=== PATIENT | male | born 2000 | race Two or more races ===

== ENCOUNTER 2022-06-11 20:53 | Inpatient (IN) ==
[2022-06-11 22:17] LABS: Basophils # (auto) 0.01 K/uL (0-0.2); Basophils % (auto) 0.1 %; Eosinophils # (auto) 0.03 K/uL (0-0.50); Eosinophils % (auto) 0.3 %; Immature Granulocytes # (auto) 0.03 K/uL (0.00-0.02); Immature Granulocytes % (auto) 0.3 %; Lymphocytes # (auto) 1.89 K/uL (1.2-3.4); Lymphocytes % (auto) 18.2 %; Mean Corpuscular Hemoglobin 28.9 pg (25.0-34.0); Mean Corpuscular Hgb Conc 34.1 g/dL (32.0-36.0); Mean Corpuscular Volume 84.8 fL (80.0-100.0); Mean Platelet Volume 9.3 fL (9.4-12.4); Monocytes # (auto) 0.62 K/uL (0.24-0.82); Neutrophils # (auto) 7.82 K/uL (1.4-6.5); Neutrophils % (auto) 75.1 %; Platelet Count 278 K/uL (130-400); RDW Coefficient of Variation 12.9 % (11.5-14.5); RDW Standard Deviation 39.4 fL (36.4-46.3); Red Blood Count 5.19 M/uL (4.63-6.08)
[2022-06-11 22:29] LABS: Appearance Urine Clear (Clear); Bilirubin Urine Negative (Negative); Blood Urine 3+ (Negative); Color Urine Yellow; Glucose Urine UA Negative (Negative); Ketones Urine Negative (Negative); Leukocyte Esterase Urine Negative (Negative); Nitrite Urine Negative (Negative); Protein Urine 1+ (Negative); Specific Gravity Urine 1.008 (1.000-1.030); Urobilinogen Urine Negative (Negative)
[2022-06-11 22:45] LABS: Bacteria Urine Negative (Negative); RBC Urine 0-4 /hpf (0-4)
[2022-06-11 22:46] LABS: Alanine Aminotransferase 253 U/L (7-52); Albumin Globulin Ratio 1.8 (0.9-2); Albumin Level 4.8 gm/dl (3.4-5.0); Alkaline Phosphatase 56 U/L (34-104); Anion Gap 5 (3-11); Aspartate Aminotransferase 942 U/L (13-39); BUN Creatinine Ratio 17.6 (10-20); Bilirubin,Total 0.7 mg/dl (0.2-1.0); Blood Urea Nitrogen 15 mg/dl (6-23); Calcium 9.8 mg/dl (8.5-10.1); Carbon Dioxide 29 mmol/L (21-32); Chloride 103 mmol/L (98-107); Creatinine Clr Calc Pharmacy 176.7 ml/min; Est GFR (African American) 146.4 ml/min; Est GFR (Non-African American) 126.3 ml/min; Globulin 2.7 gm/dl (2.5-4.0); Glucose 86 mg/dl (70-99(Fasting)); Lipase 23 U/L (11-82); Potassium 4.1 mmol/L (3.5-5.1); Sodium 137 mmol/L (136-145); Total Protein 7.5 gm/dl (6.0-8.3)
[2022-06-12] MEDS ORDERED: SODIUM CHLORIDE 0.9% 1000ML 2,000 ML IV ONE (00:15)
[2022-06-12 01:32] LABS: Creatine Kinase > 100000 U/L (30-223)
--- NOTE | 2022-06-12 01:58 | History & Physical Report ---
Date of Service June 12, 2022 Assessment & Plan (1) Rhabdomyolysis: Plan: 21-year-old male with no past medical history who presents with myalgia and likely myoglobinuria x several days most likely secondary to rhabdomyolysis. - etiology unknown; contributing factors are heavy alcohol use preceding onset of symptoms and intense gym workouts. last etoh use was 4 days ago. - check tickborne studies and hepatitis panel. lower suspicion for autoimmune pathology - AST:ALT ratio >2:1 generally more consistent w/ etoh use. bili and alk phos wnl - no reported ingestion of tylenol or illicit substances - check UDS and acetaminophen level - s/p 2L NSS in ED. 500mL/hr NSS x4 bags ordered Plan regular diet. 500mL/hr x 4 bags NSS ordered SCDs med surg full code History of Present Illness Chief Complaint: myalgia and dark urine Primary Care Provider: [facility] 21-year-old male with no past medical history who presents with myalgia that started evening of 06/07. He started noticing dark brown urine on 06/08. He presented to the ED today for persistent brown urine and the continued myalgias. Denies recent tylenol. He took 3 tabs total of ibuprofen earlier in the week. He drinks 4-8 etoh drinks on occasion every 2 weeks. In the past 7 days, he drank 3 times, last drink was 06/07, close to 8 drinks. On 06/07, he also went to workout after not working out for a year and a half. He did not take any workout supplements. 06/11 he continued to work out and had a protein shake. He denies tick bites. 1-2 weeks ago was sick with fever (negative for fever), took some multivitamins. No dysuria. No fevers/chills, cp, shortness of breath, no abd pain or n/v. Denies family hx of autoimmune conditions. Was seen here for constipation last month. Constipation has subjectively resolved. Occasional cigar. No marijuana. ED course: CK >100k, AST 942, ALT 253. 2L NSS bolus. Allergies Allergy/AdvReac Type Severity Reaction Status Date / Time No Known Allergies Allergy Unverified 06/12/22 02:46 Home Medications Medication Instructions Recorded Confirmed Type No Known Home Medications 06/12/22 06/12/22 History Past Med/Surg History Medical History No chronic diseases present Surgical History No significant past surgical history Social History Smoking Status: Former smoker Tobacco Type: Cigars Second Hand Exposure: No; Do You Dip or Chew Tobacco: No; Tobacco Cessation Education Requested by Patient: No Hx Alcohol Use: Yes Alcohol type: beer and hard liquor Hx Substance Use: No Preferred Language: Wolof Communication Ability: Effective 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 NAD. Cooperative. HEENT: Atraumatic, normocephalic. EOMI Pulm: CTAB. -wheezes, -rales, -rhonchi. No respiratory distress. Cardiac: RRR, -mrg. Radial pulses intact and symmetrical. No LE edema. Abdominal: Nontender, nondistended, soft. Integ: Warm, dry, intact. Msk: Moving all extremities. Results & Data Results & Data ([facility]) Vital Signs (Past 12 Hours) Vital Signs Temp Pulse Pulse Resp BP BP Pulse Ox 06/12/22 01:42 90 24 151/107 H 98 06/12/22 01:38 98 06/11/22 21:00 36.4 C L 120 H 20 149/94 H 97 O2 Del Method 06/12/22 01:42 Room Air 06/12/22 01:38 Room Air 06/11/22 21:00 Room Air Laboratory Results Cardiac Enzymes 06/11/22 Range/Units 22:07 AST 942 H (13-39) U/L CBC 06/11/22 Range/Units 22:07 WBC 10.40 (4.8-10.8) K/ul RBC 5.19 (4.63-6.08) M/uL Hgb 15.0 (14.0-18.0) g/dl Hct 44.0 (40.1-51.0) % Plt Count 278 (130-400) K/uL Neut # (Auto) 7.82 H (1.4-6.5) K/uL Lymph # (Auto) 1.89 (1.2-3.4) K/uL [place] # (Auto) 0.62 (0.24-0.82) K/uL Eos # (Auto) 0.03 (0-0.50) K/uL Baso # (Auto) 0.01 (0-0.2) K/uL Comprehensive Metabolic Panel 06/11/22 Range/Units 22:07 Sodium 137 (136-145) mmol/L Potassium 4.1 (3.5-5.1) mmol/L Chloride 103 (98-107) mmol/L Carbon Dioxide 29 (21-32) mmol/L BUN 15 (6-23) mg/dl Creatinine 0.85 (0.6-1.4) mg/dl Glucose 86 (70-99(Fasting)) mg/dl Calcium 9.8 (8.5-10.1) mg/dl AST 942 H (13-39) U/L ALT 253 H (7-52) U/L Alkaline Phosphatase 56 (34-104) U/L Total Protein 7.5 (6.0-8.3) gm/dl Albumin 4.8 (3.4-5.0) gm/dl Intake and Output 06/11/22 06/11/22 06/12/22 14:59 22:59 06:59 Other: Weight 107 kg Weight Measurement Method Chair Scale Patient Weight 06/12/22 06:59 Weight 107 kg Code Status & VTE Plan Code Status full VTE Prophylaxis Plan VTE Prophylaxis will be ordered: Yes Supervising Physician Co-Signing Physician Notes Attending addendum: I have physically seen this patient, have supervised the medical residents activities, and agree with the H&P unless as otherwise noted. Assessment and Plan: Rhabdomyolysis- AST 942 ALT 253 CK greater than 100,000 Patient received 2 L normal saline from the ED Continue aggressive IV fluid rehydration Follow serial chemistry profile and CK Check a PT/PTT/INR Patient denies taking any supplements Likely associated with alcohol intake followed by aggressive exercise Alcohol and UDS levels pending Remaining orders and notations as noted Resident Activity Tracking Resident Involvement: Resident Care Provided Care Provided: Adult [facility]
[2022-06-12 02:59] LABS: Amphetamines+Metham, Urine Neg (Neg); Barbiturates, Urine Neg (Neg); Benzodiazepine, Urine Neg (Neg); Cocaine, Urine Neg (Neg); MDMA (Ecstacy), Urine Neg (Neg); Methadone, Urine Neg (Neg); Opiate, Urine Neg (Neg); Phencyclidine, Urine Neg (Neg)
[2022-06-12 03:02] LABS: Partial Thromboplastin Ratio 0.9; Partial Thromboplastin Time 23.6 Seconds (21.0-31.0); Prothrombin Time 10.7 Seconds (9.0-12.0)
[2022-06-12] MEDS: SODIUM CHLORIDE 0.9% 1000ML 1,000 ML IV SCH ×7 (03:18→22:30)
[2022-06-12 03:22] LABS: Lyme Ab IgG w/WB Rflx Negative (Negative); Lyme Ab IgM w/WB Rflx Negative (Negative)
--- NOTE | 2022-06-12 03:30 | Emergency Department Note ---
Impression & Plan Rhabdomyolysis, Elevated liver enzymes ED Provider Note CHIEF COMPLAINT: Muscle soreness, HISTORY OF PRESENT ILLNESS: This 21 yo male patient presents to the emergency department 2 days after heavy workout. The patient states he went back to the gym after about 18 months of. His roommate was guiding him through the process. The patient states he had a pretty significant anterior chest discomfort. He states his arms are sore. He noticed a dark, brownish urine over the last 2 days. He states he has been trying to drink a lot of water. Patient states he did go back to the gym today and adjusted "upper body." REVIEW OF SYSTEMS: A review of systems was performed with positives and pertinent negatives listed in the history of present illness. 10 systems were reviewed and are otherwise negative. ALLERGIES: see below MEDICATIONS: see below PMH: see below SOCIAL HISTORY: see below DDx: rhabdo, UTI, kidney stone, tox, renal failure, hepatitis, medication effect, amongst others. PHYSICAL EXAM: Vital signs reviewed. General: Well-appearing 21 yo male, in no significant distress. HEENT: No scleral icterus, PERRLA, neck supple. MMM. Cardiovascular: Regular rate and rhythm, no extra sounds. Pulmonary: Clear to auscultation bilaterally, normal work of breathing. Abdomen: Soft, nontender, nondistended, positive bowel sounds. Musculoskeletal: Atraumatic, no peripheral edema. Neurologic: Patient awake alert and oriented x 3 Skin: Warm, dry, no rash EMERGENCY DEPARTMENT COURSE/MDM: This pt was evaluated and appeared to be in no distress. IV access was obtained and lab work was drawn. Pt was hydrated with NSS. Labs were notable for elevated total CK >100,000 and elevated liver enzymes. UA was notable for blood. Pt's case was discussed with the hospital ist service for further management. Pt was made aware of of the plan and agrees. MONITORING: An order for cardiac monitoring was placed and the patient is noted to be in a NSR at 90 beats per minute. DISPOSITION: Home Past Med/Surg History Medical History No chronic diseases present Surgical History No significant past surgical history Social History Smoking Status: Former smoker Tobacco Type: Cigars Second Hand Exposure: No; Do You Dip or Chew Tobacco: No; Tobacco Cessation Education Requested by Patient: No Hx Alcohol Use: Yes Alcohol type: beer and hard liquor Hx Substance Use: No Preferred Language: Bangladeshi Communication Ability: Effective Anesthesiology Teacher Required: No Beliefs That Will Affect Care: None Current Living Situation: Other Current Living Situation Comment: roomate Other Information That Helps Us Care for You: No Feels Safe at Home: Yes Safety Concerns: Feels Safe At This Time Allergies Allergies Allergy/AdvReac Type Severity Reaction Status Date / Time No Known Allergies Allergy Unverified 06/12/22 02:46 Home Meds Home Medications Medication Instructions Recorded Confirmed No Known Home Medications 06/12/22 06/12/22 Results & Data (ED) Vital Signs Vital Signs - 24 hr 06/11/22 21:00 06/12/22 01:38 06/12/22 01:42 Temperature 36.4 C L Temperature Source Temporal Artery Scan Pulse Rate 120 H Pulse Rate [Finger] 90 Respiratory Rate 20 24 Respiratory Effort / Characteristics Non-Labored Spontaneous Respiratory Depth Normal Blood Pressure 149/94 H Blood Pressure [Right Arm] 151/107 H Blood Pressure Mean 112 Blood Pressure Mean [Right Arm] 121 Pulse Oximetry 97 98 98 Oxygen Delivery Method Room Air Room Air Room Air Sepsis Recent Fever Within 48 Hours No Sepsis New/Unexplained Change in Mental Status No Sepsis Action Taken by Nursing No Action Required 06/12/22 03:00 Temperature Temperature Source Pulse Rate Pulse Rate [Finger] 98 H Respiratory Rate 18 Respiratory Effort / Characteristics Respiratory Depth Blood Pressure Blood Pressure [Right Arm] 143/101 H Blood Pressure Mean Blood Pressure Mean [Right Arm] 115 Pulse Oximetry 97 Oxygen Delivery Method Room Air Sepsis Recent Fever Within 48 Hours Sepsis New/Unexplained Change in Mental Status Sepsis Action Taken by Usp Medications Current Medication List: was personally reviewed by me Laboratory Data Attestation: I reviewed the patient's lab results. Result diagrams: 06/12/22 03:20 06/12/22 03:20 Lab Results 06/11/22 06/11/22 06/11/22 Range/Units 22:03 22:03 22:07 WBC 10.40 (4.8-10.8) K/ul RBC 5.19 (4.63-6.08) M/uL Hgb 15.0 (14.0-18.0) g/dl Hct 44.0 (40.1-51.0) % MCV 84.8 (80.0-100.0) fL MCH 28.9 (25.0-34.0) pg MCHC 34.1 (32.0-36.0) g/dL RDW Std Deviation 39.4 (36.4-46.3) fL RDW Coeff of Vesta 12.9 (11.5-14.5) % Plt Count 278 (130-400) K/uL MPV 9.3 L (9.4-12.4) fL Immature Gran % (Auto) 0.3 % Neut % (Auto) 75.1 % Lymph % (Auto) 18.2 % Branch % (Auto) 6.0 % Eos % (Auto) 0.3 % Baso % (Auto) 0.1 % Neut # (Auto) 7.82 H (1.4-6.5) K/uL Lymph # (Auto) 1.89 (1.2-3.4) K/uL Branch # (Auto) 0.62 (0.24-0.82) K/uL Eos # (Auto) 0.03 (0-0.50) K/uL Baso # (Auto) 0.01 (0-0.2) K/uL Immature Gran # (Auto) 0.03 H (0.00-0.02) K/uL PT (9.0-12.0) Seconds INR (0.9-1.1) APTT (21.0-31.0) Seconds PTT Ratio Sodium (136-145) mmol/L Potassium (3.5-5.1) mmol/L Chloride (98-107) mmol/L Carbon Dioxide (21-32) mmol/L Anion Gap (3-11) BUN (6-23) mg/dl Creatinine (0.6-1.4) mg/dl Est Cr Clr Drug Dosing ml/min Est GFR ( Amer) ml/min Est GFR (Non-Af Amer) ml/min BUN/Creatinine Ratio (10-20) Glucose (70-99(Fasting)) mg/dl Calcium (8.5-10.1) mg/dl Total Bilirubin (0.2-1.0) mg/dl AST (13-39) U/L ALT (7-52) U/L Alkaline Phosphatase (34-104) U/L Total Creatine Kinase (30-223) U/L Total Protein (6.0-8.3) gm/dl Albumin (3.4-5.0) gm/dl Globulin (2.5-4.0) gm/dl Albumin/Globulin Ratio (0.9-2) Lipase (11-82) U/L Urine Color Yellow Urine Appearance Clear (Clear) Urine pH 6.0 (4.5-7.5) Ur Specific [place] 1.008 (1.000-1.030) Urine Protein 1+ H (Negative) Urine Glucose (UA) Negative (Negative) Urine Ketones Negative (Negative) Urine Blood 3+ H (Negative) Urine Nitrite Negative (Negative) Urine Bilirubin Negative (Negative) Urine Urobilinogen Negative (Negative) Ur Leukocyte Esterase Negative (Negative) Urine RBC 0-4 (0-4) /hpf Urine WBC 5-10 H (0-5) /hpf Ur Epithelial Cells 5-10 H (0-5) /lpf Urine Bacteria Negative (Negative) Urine Opiates Screen Neg (Neg) Ur Methadone, Qual Neg (Neg) Urine Barbiturates Neg (Neg) Ur Phencyclidine (PCP) Neg (Neg) U Amphetamin/Meth Scrn Neg (Neg) MDMA (Ecstasy) Screen Neg (Neg) U Benzodiazepines Scrn Neg (Neg) Ur Cocaine Metabolite Neg (Neg) U Marijuana (THC) Screen Neg (Neg) Lyme Disease IgG Ab (Negative) Lyme Disease IgM Ab (Negative) SARS-CoV-2, RNA, NAAT (NEGATIVE) 06/11/22 06/11/22 06/11/22 Range/Units 22:07 22:07 22:07 WBC (4.8-10.8) K/ul RBC (4.63-6.08) M/uL Hgb (14.0-18.0) g/dl Hct (40.1-51.0) % MCV (80.0-100.0) fL MCH (25.0-34.0) pg MCHC (32.0-36.0) g/dL RDW Std Deviation (36.4-46.3) fL RDW Coeff of Vesta (11.5-14.5) % Plt Count (130-400) K/uL MPV (9.4-12.4) fL Immature Gran % (Auto) % Neut % (Auto) % Lymph % (Auto) % Branch % (Auto) % Eos % (Auto) % Baso % (Auto) % Neut # (Auto) (1.4-6.5) K/uL Lymph # (Auto) (1.2-3.4) K/uL Branch # (Auto) (0.24-0.82) K/uL Eos # (Auto) (0-0.50) K/uL Baso # (Auto) (0-0.2) K/uL Immature Gran # (Auto) (0.00-0.02) K/uL PT 10.7 (9.0-12.0) Seconds INR 1.0 (0.9-1.1) APTT 23.6 (21.0-31.0) Seconds PTT Ratio 0.9 Sodium 137 (136-145) mmol/L Potassium 4.1 (3.5-5.1) mmol/L Chloride 103 (98-107) mmol/L Carbon Dioxide 29 (21-32) mmol/L Anion Gap 5 (3-11) BUN 15 (6-23) mg/dl Creatinine 0.85 (0.6-1.4) mg/dl Est Cr Clr Drug Dosing 176.7 ml/min Est GFR ( Amer) 146.4 ml/min Est GFR (Non-Af Amer) 126.3 ml/min BUN/Creatinine Ratio 17.6 (10-20) Glucose 86 (70-99(Fasting)) mg/dl Calcium 9.8 (8.5-10.1) mg/dl Total Bilirubin 0.7 (0.2-1.0) mg/dl AST 942 H (13-39) U/L ALT 253 H (7-52) U/L Alkaline Phosphatase 56 (34-104) U/L Total Creatine Kinase > 102979 H (30-223) U/L Total Protein 7.5 (6.0-8.3) gm/dl Albumin 4.8 (3.4-5.0) gm/dl Globulin 2.7 (2.5-4.0) gm/dl Albumin/Globulin Ratio 1.8 (0.9-2) Lipase 23 (11-82) U/L Urine Color Urine Appearance (Clear) Urine pH (4.5-7.5) Ur Specific [place] (1.000-1.030) Urine Protein (Negative) Urine Glucose (UA) (Negative) Urine Ketones (Negative) Urine Blood (Negative) Urine Nitrite (Negative) Urine Bilirubin (Negative) Urine Urobilinogen (Negative) Ur Leukocyte Esterase (Negative) Urine RBC (0-4) /hpf Urine WBC (0-5) /hpf Ur Epithelial Cells (0-5) /lpf Urine Bacteria (Negative) Urine Opiates Screen (Neg) Ur Methadone, Qual (Neg) Urine Barbiturates (Neg) Ur Phencyclidine (PCP) (Neg) U Amphetamin/Meth Scrn (Neg) MDMA (Ecstasy) Screen (Neg) U Benzodiazepines Scrn (Neg) Ur Cocaine Metabolite (Neg) U Marijuana (THC) Screen (Neg) Lyme Disease IgG Ab Negative (Negative) Lyme Disease IgM Ab Negative (Negative) SARS-CoV-2, RNA, NAAT (NEGATIVE) 06/12/22 Range/Units 01:44 WBC (4.8-10.8) K/ul RBC (4.63-6.08) M/uL Hgb (14.0-18.0) g/dl Hct (40.1-51.0) % MCV (80.0-100.0) fL MCH (25.0-34.0) pg MCHC (32.0-36.0) g/dL RDW Std Deviation (36.4-46.3) fL RDW Coeff of Vesta (11.5-14.5) % Plt Count (130-400) K/uL MPV (9.4-12.4) fL Immature Gran % (Auto) % Neut % (Auto) % Lymph % (Auto) % Branch % (Auto) % Eos % (Auto) % Baso % (Auto) % Neut # (Auto) (1.4-6.5) K/uL Lymph # (Auto) (1.2-3.4) K/uL Branch # (Auto) (0.24-0.82) K/uL Eos # (Auto) (0-0.50) K/uL Baso # (Auto) (0-0.2) K/uL Immature Gran # (Auto) (0.00-0.02) K/uL PT (9.0-12.0) Seconds INR (0.9-1.1) APTT (21.0-31.0) Seconds PTT Ratio Sodium (136-145) mmol/L Potassium (3.5-5.1) mmol/L Chloride (98-107) mmol/L Carbon Dioxide (21-32) mmol/L Anion Gap (3-11) BUN (6-23) mg/dl Creatinine (0.6-1.4) mg/dl Est Cr Clr Drug Dosing ml/min Est GFR ( Amer) ml/min Est GFR (Non-Af Amer) ml/min BUN/Creatinine Ratio (10-20) Glucose (70-99(Fasting)) mg/dl Calcium (8.5-10.1) mg/dl Total Bilirubin (0.2-1.0) mg/dl AST (13-39) U/L ALT (7-52) U/L Alkaline Phosphatase (34-104) U/L Total Creatine Kinase (30-223) U/L Total Protein (6.0-8.3) gm/dl Albumin (3.4-5.0) gm/dl Globulin (2.5-4.0) gm/dl Albumin/Globulin Ratio (0.9-2) Lipase (11-82) U/L Urine Color Urine Appearance (Clear) Urine pH (4.5-7.5) Ur Specific [place] (1.000-1.030) Urine Protein (Negative) Urine Glucose (UA) (Negative) Urine Ketones (Negative) Urine Blood (Negative) Urine Nitrite (Negative) Urine Bilirubin (Negative) Urine Urobilinogen (Negative) Ur Leukocyte Esterase (Negative) Urine RBC (0-4) /hpf Urine WBC (0-5) /hpf Ur Epithelial Cells (0-5) /lpf Urine Bacteria (Negative) Urine Opiates Screen (Neg) Ur Methadone, Qual (Neg) Urine Barbiturates (Neg) Ur Phencyclidine (PCP) (Neg) U Amphetamin/Meth Scrn (Neg) MDMA (Ecstasy) Screen (Neg) U Benzodiazepines Scrn (Neg) Ur Cocaine Metabolite (Neg) U Marijuana (THC) Screen (Neg) Lyme Disease IgG Ab (Negative) Lyme Disease IgM Ab (Negative) SARS-CoV-2, RNA, NAAT NEGATIVE (NEGATIVE) Administered Medications Sodium Chloride (Nss 1000ml) 1,000 mls @ 200 mls/hr IV .Q5H KRISHNA Stop: 07/12/22 12:29 Last Admin: 06/12/22 12:39 Dose: 200 mls/hr Documented By: LIZZY Discontinued Medications Sodium Chloride (Nss 1000ml) 2,000 mls @ 999 mls/hr IV .Q2H1M ONE Stop: 06/12/22 02:15 Last Infusion: 06/12/22 02:44 Dose: 0 mls/hr Documented By: Admin: 06/12/22 01:01 Dose: 999 mls/hr Documented By: KELLY Sodium Chloride (Nss 1000ml) 1,000 mls @ 500 mls/hr IV .Q2H KRISHNA Stop: 06/12/22 10:07 Last Infusion: 06/12/22 11:32 Dose: 0 mls/hr Documented By: Admin: 06/12/22 09:24 Dose: 500 mls/hr Documented By: Infusion: 06/12/22 09:18 Dose: 500 mls/hr Documented By: Admin: 06/12/22 07:18 Dose: 500 mls/hr Documented By: Infusion: 06/12/22 07:18 Dose: 500 mls/hr Documented By: Admin: 06/12/22 05:18 Dose: 500 mls/hr Documented By: Infusion: 06/12/22 05:18 Dose: 500 mls/hr Documented By: Admin: 06/12/22 03:18 Dose: 500 mls/hr Documented By: AMY Blood Pressure Blood Pressure Findings: Elevated blood pressure Blood Pressure Disposition: further management by hospitalist Discharge Plan Visit Data Chief Complaint: Urinary Symptoms Stated Complaint: brown urine ED Provider: Anny Varner Discharge Problem: Rhabdomyolysis, Elevated liver enzymes Patient Disposition: Admitted As Inpatient Discharge Instructions Interventions: ED Discharge Assessment Last Done: 06/12/22 05:29
[2022-06-12 03:34] LABS: Base Excess VBG -0.2 mEq/L; HCO3 VBG 25 mmol/L; Oxygen Saturation VBG 81.3 %; PCO2 VBG 41 mmHg (38-50); PO2 VBG 51 mmHg; pH VBG 7.39 (7.36-7.41)
[2022-06-12 03:38] LABS: Basophils # (auto) 0.01 K/uL (0-0.2); Basophils % (auto) 0.1 %; Eosinophils # (auto) 0.05 K/uL (0-0.50); Eosinophils % (auto) 0.6 %; Hematocrit (blood only) 40.6 % (40.1-51.0); Hemoglobin 13.8 g/dl (14.0-18.0); Immature Granulocytes # (auto) 0.02 K/uL (0.00-0.02); Immature Granulocytes % (auto) 0.3 %; Lymphocytes # (auto) 2.19 K/uL (1.2-3.4); Lymphocytes % (auto) 27.4 %; Mean Corpuscular Hemoglobin 28.9 pg (25.0-34.0); Mean Corpuscular Volume 84.9 fL (80.0-100.0); Mean Platelet Volume 9.1 fL (9.4-12.4); Monocytes # (auto) 0.49 K/uL (0.24-0.82); Monocytes % (auto) 6.1 %; Neutrophils # (auto) 5.22 K/uL (1.4-6.5); Neutrophils % (auto) 65.5 %; Platelet Count 236 K/uL (130-400); RDW Coefficient of Variation 12.9 % (11.5-14.5); RDW Standard Deviation 39.5 fL (36.4-46.3); Red Blood Count 4.78 M/uL (4.63-6.08); White Blood Count 7.98 K/ul (4.8-10.8)
[2022-06-12 04:02] LABS: Troponin I High Sensitivity 16.6 pg/ml (0-20)
[2022-06-12 04:03] LABS: Alanine Aminotransferase 221 U/L (7-52); Albumin Level 4.3 gm/dl (3.4-5.0); Alkaline Phosphatase 48 U/L (34-104); Anion Gap 7 (3-11); Aspartate Aminotransferase 776 U/L (13-39); BUN Creatinine Ratio 14.5 (10-20); Bilirubin,Total 0.7 mg/dl (0.2-1.0); Blood Urea Nitrogen 11 mg/dl (6-23); Calcium 8.9 mg/dl (8.5-10.1); Carbon Dioxide 25 mmol/L (21-32); Chloride 106 mmol/L (98-107); Creatinine Clr Calc Pharmacy 197.6 ml/min; Est GFR (African American) > 150.0 ml/min; Est GFR (Non-African American) 132.3 ml/min; Globulin 2.1 gm/dl (2.5-4.0); Glucose 87 mg/dl (70-99(Fasting)); Magnesium 1.9 mg/dl (1.7-2.4); Phosphorus 3.8 mg/dl (2.5-4.9); Potassium 3.8 mmol/L (3.5-5.1); Sodium 138 mmol/L (136-145); Total Protein 6.4 gm/dl (6.0-8.3)
--- NOTE | 2022-06-12 07:56 | Communication Note ---
Date of Service: June 12, 2022 Rhabdomyolysis: Will need IV fluids re-ordered (perhaps at slower rate) after completion of the 4 bags of 500mL/hr NSS.
--- NOTE | 2022-06-12 13:58 | Electrocardiogram Report ---
Test Reason : Blood Pressure : / mmHG Vent. Rate : 087 BPM Atrial Rate : 087 BPM P-R Int : 148 ms QRS Dur : 084 ms QT Int : 388 ms P-R-T Axes : 048 055 029 degrees QTc Int : 466 ms Normal sinus rhythm Normal ECG No previous ECGs available Confirmed by Ephraim Beyer ([id number]) on 06/12/2022 1:57:56 PM Referred By: REFERRED SELF Confirmed By:Ephraim Beyer
[2022-06-12 14:10] LABS: Alanine Aminotransferase 222 U/L (7-52); Aspartate Aminotransferase 731 U/L (13-39); Creatine Kinase 83798 U/L (30-223)
--- NOTE | 2022-06-12 21:36 | Communication Note ---
Date of Service: June 12, 2022 Saw patient mid-afternoon. He was resting comfortably. Feeling ok. Left arm stiffness from recent weight lifting sessions improved. No body-wide myalgias. Exam - gen - NAD neck - no JVD mouth - MMM heart - RRR, s1 s2 lungs - CTA b/l abd - soft NT ND BS+; no HSM ext - left arm mildly swollen but no evidence of compartment syndrome; ankles w/o edema, pulses 2+ b/l labs - CPK 100,000 --> 83,000 AST, ALT 700s and 200s respectively Cr 0.7 A/P: 1. rhabdomyolysis - 2nd to intense weight lifting work-out in the setting of etoh use. Biochemically improved with stable creatinine. No evidence of compartment syndrome on exam. Cont NS - 200cc/hr. Repeat labs in am. 2. elevated AST/ALT - 2nd to #1 along with etoh use. Trend. 3. elevated BP without dx of HTN - trend BPs. Pt's mother extensively updated by phone this evening, questions answered. Clif Andrews MD
--- NOTE | 2022-06-12 23:56 | Billing Data ---
Date of Service June 12, 2022 Coding Level of Care Code 64805 Initial Inpt Care Lvl 2
[2022-06-13] MEDS: SODIUM CHLORIDE 0.9% 1000ML 1,000 ML IV SCH ×5 (03:34→23:18)
[2022-06-13 06:18] LABS: Anion Gap 5 (3-11); Blood Urea Nitrogen 5 mg/dl (6-23); Calcium 9.2 mg/dl (8.5-10.1); Carbon Dioxide 28 mmol/L (21-32); Chloride 105 mmol/L (98-107); Creatinine Clr Calc Pharmacy 211.5 ml/min; Est GFR (African American) > 150.0 ml/min; Glucose 94 mg/dl (70-99(Fasting)); Potassium 3.8 mmol/L (3.5-5.1); Sodium 138 mmol/L (136-145)
[2022-06-13 07:59] LABS: Alanine Aminotransferase 215 U/L (7-52)
[2022-06-13 09:49] LABS: Aspartate Aminotransferase 623 U/L (13-39); Creatine Kinase 52704 U/L (30-223)
--- NOTE | 2022-06-13 22:40 | Hospitalist Progress Note ---
Date of Service June 13, 2022 Assessment & Plan (1) Rhabdomyolysis: Plan: 2nd to intense gym workouts recently preceded by no regular exercise in several years. Likely exacerbated by dehydration from heavy etoh abuse. Last etoh use was 4 days prior to admission. IMPROVING biochemically. No myalgia symptoms. Stable renal function. Cont NS at 200cc/hr. Repeat ast/alt and CPK in am. (2) Transaminitis: Plan: 2nd to #1. alcohol abuse also likely contributed. Stable LFTs otherwise. AST/ALT slowly improving. Repeat levels am. (3) Elevated blood-pressure reading without diagnosis of hypertension: Plan: Has had numerous elevated readings here at [facility], and was high at his annual physical last year. He may have essential HTN. Underlying KISHOR could be contributing. Check TSH in am. Check renin/janie levels. Monitor for now. (4) Snoring: Plan: Needs formal sleep study as outpatient. 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 he remembers his systolic BP being 135 he is uncertain about family h/o HTN he has lost 40-50 pounds of weight in the last year intentionally does snore per his family but it is improved with the weight loss Review of Systems Review of Systems: gen - eating well cv - no orthopnea, palpitations, cp pulm - no dyspnea or CHILDS GI - no N/V Physical Exam Physical Exam: gen - NAD, pleasant mouth - MMM neck - no JVD heart - RRR, s1 s2, no murmur lungs - CTA b/l abd - soft NT ND BS+ ext - no edema, pulses 2+ b/l musculo - left arm swelling resolved Results & Data Results & Data ([facility]) Vital Signs (Past 12 Hours) Vital Signs Temp Pulse Resp BP BP Pulse Ox O2 Del Method 06/13/22 21:39 36.9 C 75 18 152/95 H 99 Room Air 06/13/22 14:47 36.9 C 93 H 18 155/98 H 156/104 H 97 Room Air Laboratory Results Laboratory Results - last 24 hr 06/13/22 05:07 Sodium 138 Potassium 3.8 Chloride 105 Carbon Dioxide 28 Anion Gap 5 BUN 5 L Creatinine 0.71 Est Cr Clr Drug Dosing 211.5 Est GFR ( Amer) > 150.0 Est GFR (Non-Af Amer) 136.0 BUN/Creatinine Ratio 7.0 L Glucose 94 Calcium 9.2 AST 623 H ALT 215 H Total Creatine Kinase 20364 H PG Care Time/CCT Total # of Minutes Spent Total Time Spent with Patient: Total time spent is greater than 50% in coordination of care (as documented) at patient's floor/unit and/or counseling patient: Coding Level of Care Code 57253 Subseq Hosp Care Lvl 2 Diagnoses Rhabdomyolysis M62.82 Rhabdomyolysis type: non-traumatic Transaminitis R74.01 Elevated blood-pressure reading without diagnosis of hypertension R03.0 Snoring R06.83 (1) Rhabdomyolysis Rhabdomyolysis type: non-traumatic Qualified Code(s): M62.82 - Rhabdomyolysis
[2022-06-14 00:32] LABS: HBSAG NON-REACTIVE (NON-REACTIVE); Hepatitis A Antibody IgM NON-REACTIVE (NON-REACTIVE); Hepatitis B Core Antibody IgM NON-REACTIVE (NON-REACTIVE)
[2022-06-14] MEDS: SODIUM CHLORIDE 0.9% 1000ML 1,000 ML IV SCH ×4 (04:17→19:13)
[2022-06-14 06:34] LABS: Anion Gap 7 (3-11); Blood Urea Nitrogen 7 mg/dl (6-23); Carbon Dioxide 26 mmol/L (21-32); Chloride 105 mmol/L (98-107); Creatinine Clr Calc Pharmacy 214.5 ml/min; Est GFR (African American) > 150.0 ml/min; Est GFR (Non-African American) 136.8 ml/min; Glucose 91 mg/dl (70-99(Fasting)); Potassium 3.6 mmol/L (3.5-5.1); Sodium 138 mmol/L (136-145)
[2022-06-14 06:41] LABS: Alanine Aminotransferase 189 U/L (7-52); Aspartate Aminotransferase 416 U/L (13-39)
[2022-06-14 06:45] LABS: Creatine Kinase 25407 U/L (30-223)
[2022-06-14] MEDS ORDERED: FAMOTIDINE 40 MG TABLET PO ONE (13:04)
--- NOTE | 2022-06-14 13:05 | Hospitalist Progress Note ---
Date of Service June 14, 2022 Assessment & Plan (1) Chest pain: Plan: suspect either reflux/GERD and/or musculoskeletal doubt cardiac; no evidence of pericarditis EKG today with NSR, no ST changes gave pepcid 40mg po x 1 for possible GERD echo obtained - primarily due to # 4 - but EF normal; valve function normal; no pericardial effusion no LVH no wall motion abnormalities follow for recurrence (2) Rhabdomyolysis: Plan: 2nd to intense gym workouts recently preceded by no regular exercise in several years. Likely exacerbated by dehydration from heavy etoh abuse around the time of these intense weight-lifting work-outs. Last etoh use was 4 days prior to admission. IMPROVING biochemically. Peak CPK >100,000. Now 25,000. No myalgia symptoms. Stable renal function. Cont NS at 200cc/hr. Repeat ast/alt and CPK in am. Can likely d/c home once CPK is <10,000 - can hydrate vigorously at home. Risk of renal injury VERY low once below these levels. (3) Transaminitis: Plan: 2nd to #1. alcohol abuse also likely contributed. Stable LFTs otherwise. AST/ALT slowly improving. Repeat levels am. (4) Elevated blood-pressure reading without diagnosis of hypertension: Plan: Has had numerous elevated readings here at [facility], and was high at his annual physical last year. He may have essential HTN. Underlying KISHOR could be contributing. TSH wnl. renin/janie levels pending. Monitor for now. Given his age would not commit him to medication just yet - focus on lifestyle modification. (5) Snoring: Plan: Needs formal sleep study as outpatient. Plan Pt's mother extensively updated by phone this evening Admission and Anticipated Discharge Date Admission Date: June 12, 2022 Subjective overnight was having mild chest discomfort just to left of center in the mid- chest region was laying in bed watching TV in middle of the night when this happened had associated burping no dyspnea no nausea or emesis admits to feeling stressed out about being in the hospital, etc denies any pleuritic component denies that the pain is worsened by supine position he did mention that the pain may be worse w/ moving the left arm Review of Systems Review of Systems: gen - good appetite cv - see HPI pulm - no cough or dyspnea or CHILDS GI - constipated, gassy psych - anxious musculo - no diffuse myalgias; muscle stiffness left arm nearly resolved Physical Exam Physical Exam: gen - NAD, pleasant, looks good mouth - MMM neck - no JVD heart - RRR, s1 s2, no murmur lungs - CTA b/l chest - no reproducible chest wall pain to palpation abd - soft NT ND BS+ ext - no edema, pulses 2+ b/l musculo - left arm swelling resolved; moving the left arm actively or passively does not bring on the chest wall pain Results & Data Results & Data ([facility]) Vital Signs (Past 12 Hours) Vital Signs Temp Pulse Resp BP Pulse Ox O2 Del Method 06/14/22 08:29 36.8 C 77 16 157/105 H 99 Room Air Laboratory Results Laboratory Results - last 24 hr 06/12/22 06/14/22 06/14/22 03:20 05:44 05:44 Sodium 138 Potassium 3.6 Chloride 105 Carbon Dioxide 26 Anion Gap 7 BUN 7 Creatinine 0.70 Est Cr Clr Drug Dosing 214.5 Est GFR ( Amer) > 150.0 Est GFR (Non-Af Amer) 136.8 BUN/Creatinine Ratio 10.0 Glucose 91 Calcium 9.0 AST 416 H ALT 189 H Total Creatine Kinase 07630 H Renin Activity Aldosterone TSH 2.795 Hepatitis A IgM Ab NON-REACTIVE Hep Bs Antigen NON-REACTIVE Hep Bs Ag Confirmation TNP Hep B Core IgM Ab NON-REACTIVE Hepatitis C Ab (EIA) NON-REACTIVE Hep C Ab Signal/Cutoff 0.05 06/14/22 05:44 Sodium Potassium Chloride Carbon Dioxide Anion Gap BUN Creatinine Est Cr Clr Drug Dosing Est GFR ( Amer) Est GFR (Non-Af Amer) BUN/Creatinine Ratio Glucose Calcium AST ALT Total Creatine Kinase Renin Activity Pending Aldosterone Pending TSH Hepatitis A IgM Ab Hep Bs Antigen Hep Bs Ag Confirmation Hep B Core IgM Ab Hepatitis C Ab (EIA) Hep C Ab Signal/Cutoff PG Care Time/CCT Total # of Minutes Spent Total Time Spent with Patient: Total time spent is greater than 50% in coordination of care (as documented) at patient's floor/unit and/or counseling patient: Coding Level of Care Code 50212 Subseq Hosp Care Lvl 3 Diagnoses Chest pain R07.9 Rhabdomyolysis M62.82 Rhabdomyolysis type: non-traumatic Transaminitis R74.01 Elevated blood-pressure reading without diagnosis of hypertension R03.0 Snoring R06.83 (1) Rhabdomyolysis Rhabdomyolysis type: non-traumatic Qualified Code(s): M62.82 - Rhabdomyolysis
--- NOTE | 2022-06-14 13:34 | Electrocardiogram Report ---
Test Reason : Blood Pressure : / mmHG Vent. Rate : 071 BPM Atrial Rate : 071 BPM P-R Int : 150 ms QRS Dur : 086 ms QT Int : 398 ms P-R-T Axes : 034 048 013 degrees QTc Int : 432 ms Normal sinus rhythm Normal ECG When compared with ECG of 12-JUN-2022 07:14, No significant change was found Confirmed by Roldan Santiago ([id number] on 06/14/2022 1:34:11 PM Referred By: REFERRED SELF Confirmed By:Roldan Santiago
[2022-06-15] MEDS: SODIUM CHLORIDE 0.9% 1000ML 1,000 ML IV SCH ×3 (00:21→10:20)
[2022-06-15] MEDS ORDERED: FAMOTIDINE 20 MG TAB PO SCH (09:00)
[2022-06-15 09:10] LABS: Anion Gap 6 (3-11); BUN Creatinine Ratio 9.6 (10-20); Blood Urea Nitrogen 7 mg/dl (6-23); Calcium 9.5 mg/dl (8.5-10.1); Carbon Dioxide 26 mmol/L (21-32); Chloride 105 mmol/L (98-107); Creatinine Clr Calc Pharmacy 205.7 ml/min; Est GFR (African American) > 150.0 ml/min; Est GFR (Non-African American) 134.5 ml/min; Glucose 85 mg/dl (70-99(Fasting)); Potassium 3.6 mmol/L (3.5-5.1); Sodium 137 mmol/L (136-145)
[2022-06-15 09:11] LABS: Alanine Aminotransferase 159 U/L (7-52); Aspartate Aminotransferase 226 U/L (13-39)
[2022-06-15 09:28] LABS: Creatine Kinase 10799 U/L (30-223)
--- NOTE | 2022-06-15 15:33 | Discharge Summary ---
Date of Service June 15, 2022 Admission HPI Per Admitting Provider 21-year-old male with no past medical history who presents with myalgia that started evening of 06/07. He started noticing dark brown urine on 06/08. He presented to the ED today for persistent brown urine and the continued myalgias. Denies recent tylenol. He took 3 tabs total of ibuprofen earlier in the week. He drinks 4-8 etoh drinks on occasion every 2 weeks. In the past 7 days, he drank 3 times, last drink was 06/07, close to 8 drinks. On 06/07, he also went to workout after not working out for a year and a half. He did not take any workout supplements. 06/11 he continued to work out and had a protein shake. He denies tick bites. 1-2 weeks ago was sick with fever (negative for fever), took some multivitamins. No dysuria. No fevers/chills, cp, shortness of breath, no abd pain or n/v. Denies family hx of autoimmune conditions. Was seen here for constipation last month. Constipation has subjectively resolved. Occasional cigar. No marijuana. ED course: CK >100k, AST 942, ALT 253. 2L NSS bolus. Principal Diagnosis rhabdomyolysis non cardiac chest pain Discharge Exam The patient appeared stable Vital signs as documented. Lungs are clear to auscultation and appear unlabored Cardiac exam, Rhythm is regular.. No murmurs, rubs or gallops. Abdominal exam reveals normal bowel sounds, soft non tender, no masses Extremities are nonedematous and both pedal pulses are normal. Neurologic exam is alert and oriented, no focal loss of strength or sensation Skin is with some minor erythema at iv site, no cellulitis no phlebitis on exam, tender bicep tendon insertion Psychologically is without concerns for anxiety or depression. Discharge Data Allergies Allergy/AdvReac Type Severity Reaction Status Date / Time No Known Allergies Allergy Unverified 06/12/22 02:46 Consultations 06/12/22 02:25 ED Decision to Admit Stat Hospital Course (1) Chest pain: suspect either reflux/GERD and/or musculoskeletal doubt cardiac; no evidence of pericarditis EKG with NSR, no ST changes echo obtained - EF normal; valve function normal; no pericardial effusion no LVH no wall motion abnormalities recomment pepcid at discharge (2) Rhabdomyolysis: 2nd to intense gym workouts recently preceded by no regular exercise in several years. Likely exacerbated by dehydration from heavy etoh abuse around the time of these intense weight-lifting work-outs. Last etoh use was 4 days prior to admission. IMPROVING biochemically. Peak CPK >100,000. Now 25,000. No myalgia symptoms. Stable renal function. Cont NS at 200cc/hr. Repeat ast/alt and CPK in am. encourage hydration, no intentional exercise (3) Transaminitis: 2nd to #1. alcohol abuse also likely contributed. Stable LFTs otherwise. AST/ALT slowly improving. (4) Elevated blood-pressure reading without diagnosis of hypertension: Has had numerous elevated readings here at [facility], and was high at his annual physical last year. He may have essential HTN. Underlying KISHOR could be contributing. TSH wnl. renin/janie levels pending at time of discharge, encouraged follow up at [facility]. Monitor for now. Given his age would not commit him to medication just yet - focus on lifestyle modification. (5) Snoring: Total Time Total Time Spent Total Time Spent (In Minutes): It required greater than 30 minutes to prepare this patient for discharge Discharge Plan Discharge Items Patient Disposition: Home - Self-Care Reason For Visit: RHABDOMYOLYSIS Discharge Diagnosis: Rhabdomyolysis elevatyed blood pressure Activity: Per Instructions section Activity Comment: no intentional exercise until follow up with primary care Non-emergency contact: Primary Care Provider Call non-emergency contact if: your symptoms worsen Follow-up/Referrals: [facility] [Primary Care Provider] - (CALL [facility] TO MAKE A HOSPITAL FOLLOW UP 7-10 DAYS AFTER DISCHARGE.) Diet: Regular Addtl Attending Provider Instructions: consider a low salt low caffeine diet to help reduce your blood pressure once cleared by [facility] consider cardio based exercie to help improve your blood pressure please follow up for a blood recheck take over the counter famotidine, pepcid for your chest pain that maybe reflux, all of your heart tests look good Pending Studies at Discharge: Yes (blood work for high blood pressure that is a send out ) Stand-Alone Forms: [facility], Work/School Release, Smoking Cessation Medications and DC Order Prescriptions: No Action No Known Home Medications Discharge Orders: Discharge Order (Routine); Ordered 06/15/22 Ordered By: Jaswant Woody/Other Patient Handouts: Rhabdomyolysis, What Are Snoring and Sleep Apnea?, DASH Plan Eat Heart Healthy Food, What Is High Blood Pressure Admission Data Admit Date/Time: 06/12/22 03:01 Attending Provider: Jaswant Crooks Admit Provider: Kavin Herndon Primary Care Provider: [facility] Other Providers: Umer Robertson Other Interventions: Discharge Summary Assessment (RN) Last Done: 06/15/22 14:00 Coding Level of Care Code D/C DAY MANAGEMENT >30 MINS Diagnoses Chest pain R07.9 Rhabdomyolysis M62.82 Rhabdomyolysis type: non-traumatic Transaminitis R74.01 Elevated blood-pressure reading without diagnosis of hypertension R03.0 Snoring R06.83
[2022-06-22 09:52] LABS: Renin Activity 0.82 ng/mL/h (0.25-5.82)
== END 2022-06-15 15:30 | disposition home or self-care (01) | DRG 558 ==
LOC: ED 20:53 → 3E 06-12 03:01 → SUATTDRO 06-12 03:01 → 3E 06-12 05:29